=== PATIENT | female | born 1935 | race Caucasian/White ===

== ENCOUNTER 2018-11-21 07:35 | Outpatient (CLI) | payer MEDICARE ==
[2018-11-21 14:25] LABS: #Eosinphils 0.2 thou/uL (0.0-0.7); #Lymphocytes 1.3 thou/uL (1.20-3.40); #Monocytes 0.4 thou/uL (0.11-0.59); #Neutrophils 3.4 thou/uL (1.40-6.50); %Basophils 0.4 % (0.0-1.0); %Eosinophils 3.3 % (0.0-10.0); %Lymphocytes 24.3 % (21.0-51.0); Hemoglobin 12.6 g/dL (12.0-16.0); Mean Corpuscular HGB CONC 32.6 g/dL (32.0-36.0); Mean Corpuscular Hemoglobin 28.2 pg (27.0-31.0); Mean Corpuscular Volume 86.5 fL (78.0-98.0); Mean Platelet Volume 7.6 fL (7.4-10.4); Platelet Count 250 thou/uL (130-400); RBC Distribution Width 12.2 % (11.5-14.5); Red Blood Cell (RBC) Count 4.45 mill/uL (4.20-5.40); White Blood Cell (WBC) Count 5.3 thou/uL (4.8-10.8)
[2018-11-21 14:51] LABS: ALT (SGPT) 20 U/L (8-55); AST (SGOT) 20 U/L (5-34); Albumin 3.6 g/dL (3.4-4.8); Alkaline Phosphatase 80 U/L (40-150); Anion Gap 13 mmol/L (10-20); BUN (Urea Nitrogen) 25 mg/dL (9.8-20.1); Bilirubin, Direct 0.4 mg/dL (0.1-0.3); Calc. Creatinine Clearance 0 mL/min (70-130); Calcium 9.4 mg/dL (7.8-10.44); Carbon Dioxide 29 mmol/L (23-31); Chloride 102 mmol/L (98-107); Estimated GFR-MDRD 71; Globulin 3.2 g/dL (2.4-3.5); Glucose 178 mg/dL (83-110); Potassium 3.6 mmol/L (3.5-5.1); Protein, Total 6.8 g/dL (6.0-8.3); Sodium 140 mmol/L (136-145)
--- NOTE | 2018-11-23 20:50 | EKG ---
Test Reason : Blood Pressure : / mmHG Vent. Rate : 074 BPM Atrial Rate : 074 BPM P-R Int : 184 ms QRS Dur : 092 ms QT Int : 362 ms P-R-T Axes : 071 037 034 degrees QTc Int : 401 ms Sinus rhythm with Possible Premature atrial complexes with Abberant conduction Otherwise normal ECG No previous ECGs available Confirmed by Karey ESCOBAR ([id number]) on 11/23/2018 8:49:35 PM Referred By: ELENA Confirmed By:Karey ESCOBAR
== END 2018-11-21 07:36 | disposition home or self-care (01) ==
LOC: LABBT 07:35
PROVIDERS: ATTEND Surgery
DX: Z01.818 Encounter for other preprocedural examination (principal); K80.20 Calculus of gallbladder without cholecystitis without obstruction
CPT/HCPCS: 80053; 80076; 85025; 93005; 93010

== ENCOUNTER 2018-11-23 07:22 | Day surgery (SDC) | payer MEDICARE ==
[2018-11-21 14:15] VITALS: BMI 24.7
[2018-11-23] MEDS ORDERED: cefOXitin Sodium/Dextrose,Iso 2 GM in Premix Bag 1 BAG IVPB SCH (08:15)
[2018-11-23] MEDS ORDERED: Bupivacaine/Epinephrine 0.25% 30 ML VIAL ONE (10:19)
[2018-11-23] MEDS ORDERED: Famotidine/PF 20 mg/2ml Vial ONE (10:20)
[2018-11-23] MEDS ORDERED: Fentanyl 100 MCG/2 ML VIAL ONE (10:20)
--- NOTE | 2018-11-23 11:52 | OP ---
DATE OF PROCEDURE: 11/23/2018 PREOPERATIVE DIAGNOSIS: Symptomatic cholelithiasis. PROCEDURE PERFORMED: Laparoscopic cholecystectomy. INDICATIONS: An 83-year-old female, who has been having episodic epigastric and right upper quadrant pain radiating to back, associated with nausea, worse after eating. Ultrasound showed cholelithiasis. FINDINGS: She had a single about 8 mm stone in the neck of the gallbladder. Cystic duct did not appear to be dilated. DESCRIPTION OF PROCEDURE: After informed consent was obtained, the patient was taken to the operating room, given general endotracheal anesthesia, placed in supine position. Abdomen was prepped and draped in usual fashion. Local anesthesia infiltrated subcutaneously and deep, and a 5 mm incision was performed left subcostal. A Veress needle inserted. Drop test performed. Pneumoperitoneum was created to a volume of 2 L of carbon dioxide. Utilizing a 0 degree scope and a 5 mm trocar, direct visual entry into abdominal cavity was performed. Pneumoperitoneum was then created to a pressure of 15 mmHg. She had a previous low midline incision. I was able to look back at the anterior abdominal wall. There were no adhesions, so a subumbilical midline incision was performed and a 12 mm trocar was inserted. Then, the patient was placed in reverse Trendelenburg position and two other 5-mm ports were placed subcostally. The gallbladder was grasped and advanced superiorly. Peritoneum lysed distally to expose the cystic duct and artery in critical view. These were triply ligated with hemoclips and divided. The gallbladder removed from its fossa utilizing electrocautery, removed from the umbilical port. Hemostasis assured. Trocars and retractors removed. This was done after the fascia was closed utilizing a 0-Vicryl suture and the GraNee needle. The skin closed with interrupted 4-0 Rapide. Dermabond applied. The patient tolerated the procedure well, transferred to Recovery in good condition. Sponge and needle count verified correct x2. Job ID: [id number]
[2018-11-23] MEDS ORDERED: Dexamethasone 20 MG/5 ML VIAL ONE (16:16)
[2018-11-23] MEDS ORDERED: Metoprolol Tartrate 5 MG/5 ML VIAL ONE (16:16)
[2018-11-23] MEDS ORDERED: Lidocaine 1% PF 5 ML VIAL ONE (16:16)
[2018-11-23] MEDS ORDERED: Glycopyrrolate 0.2 MG/ML 5 ML SYRINGE ONE (16:16)
[2018-11-23] MEDS ORDERED: Ondansetron PF 4 MG/2 ML Vial ONE (16:16)
[2018-11-23] MEDS ORDERED: Ketorolac Tromethamine 30 MG/ML VIAL ONE (16:16)
[2018-11-23] MEDS ORDERED: PROPOFOL 200 MG/20 ML VIAL ONE (16:16)
[2018-11-23] MEDS ORDERED: Rocuronium Bromide 10 MG/ML (10ML VIAL) ONE (16:16)
== END 2018-11-23 14:30 | disposition home or self-care (01) ==
LOC: SDC 07:22
PROVIDERS: ATTEND Surgery
PROC: 0FT44ZZ Resection of Gallbladder, Percutaneous Endoscopic Approach (ICD-10-PCS; principal; 2018-11-23)
DX: K80.12 Calculus of gallbladder with acute and chronic cholecystitis without obstruction (principal); E78.00 Pure hypercholesterolemia, unspecified; J45.909 Unspecified asthma, uncomplicated; Z79.51 Long term (current) use of inhaled steroids; Z79.899 Other long term (current) drug therapy; Z88.1 Allergy status to other antibiotic agents; Z88.8 Allergy status to other drugs, medicaments and biological substances
CPT/HCPCS: 88304; J0131; J1100; J1885; J2001; J2405; J2704; J3010; S0028